=== PATIENT | female | born 1990 | race Hispanic/Latino ===

== ENCOUNTER 2020-11-18 11:52 | Inpatient (IN) | payer SELFPAY ==
[~2020-11-18 11:52] MED LIST: Iopamidol-370 76% 500 ML 1 ML ONE
[2020-11-18] MEDS ORDERED: Piperacillin/Tazobactam 4.5 GM VIAL ONE (12:35)
[2020-11-18] MEDS ORDERED: Acetaminophen 500 MG TAB ONE (12:35)
[2020-11-18 13:10] LABS: #Basophils 0.1 thou/uL (0.0-0.2); #Lymphocytes 0.2 thou/uL (1.20-3.40); #Monocytes 0.5 thou/uL (0.11-0.59); #Neutrophils 4.3 thou/uL (1.40-6.50); %Eosinophils 0.2 % (0.0-10.0); %Lymphocytes 3.2 % (21.0-51.0); %Monocytes 9.9 % (0.0-10.0); %Neutrophils 85.6 % (42.0-75.0); Hemoglobin 11.9 g/dL (12.0-16.0); Mean Corpuscular HGB CONC 33.7 g/dL (32.0-36.0); Mean Corpuscular Hemoglobin 30.7 pg (27.0-31.0); Mean Platelet Volume 7.6 fL (7.4-10.4); Platelet Count 204 thou/uL (130-400); RBC Distribution Width 12.4 % (11.5-14.5); Red Blood Cell (RBC) Count 3.88 mill/uL (4.20-5.40); White Blood Cell (WBC) Count 5.1 thou/uL (4.8-10.8)
[2020-11-18] MEDS ORDERED: VANCOMYCIN 2 GRAM/400 ML BAG 2 GM in Premix Bag 1 BAG IVPB SCH (13:15)
[2020-11-18 13:19] LABS: BHCG - Serum Negative (NEGATIVE); Pregs Control Bar Appear? YES (CONTROL BAR)
[2020-11-18 13:20] LABS: Pregs Control Background? CLEAR/WHITE (CLR/WHITE)
--- NOTE | 2020-11-18 13:20 | RAD ---
PORTABLE CHEST: HISTORY: Cough. FINDINGS: Heart size and mediastinum are within normal limits. The lungs appear clear of any infiltrative proc ess. No significant bony findings. IMPRESSION: No active intrathoracic disease. POS: ELAINE
[2020-11-18 13:36] LABS: ALT (SGPT) 20 U/L (8-55); AST (SGOT) 16 U/L (5-34); Albumin 3.7 g/dL (3.5-5.0); Alkaline Phosphatase 75 U/L (40-110); Anion Gap 15 mmol/L (10-20); BUN (Urea Nitrogen) 10 mg/dL (7.0-18.7); Bilirubin, Total 0.6 mg/dL (0.2-1.2); Calc. Creatinine Clearance 0 mL/min (70-130); Calcium 8.7 mg/dL (7.8-10.44); Carbon Dioxide 20 mmol/L (22-29); Chloride 102 mmol/L (98-107); Globulin 3.4 g/dL (2.4-3.5); Glucose 138 mg/dL (70-105); Lipase 9 U/L (8-78); Potassium 3.5 mmol/L (3.5-5.1); Protein, Total 7.1 g/dL (6.0-8.3); Sodium 133 mmol/L (136-145)
[2020-11-18 13:46] LABS: Base Excess-Venous -2.8 mmol/L (-2.0 to 3.0); Bicarbonate (HCO3v) 19.4 mmol/L (22.0-28.0); Calcium, Ionized 0.96 mmol/L (1.15-1.33); Chloride 103 mmol/L (98-107); Hemoglobin - Calc 12.1 g/dL (12.0-16.0); Potassium 3.7 mmol/L (3.5-5.1); Sodium 135 mmol/L (138-145); T. Carbon Dioxide 20.2 mmol/L (22.0-28.0); vO2 Saturation-calc 98.2 % (60.0-85.0)
[2020-11-18 14:19] LABS: Bilirubin Negative (Negative); Blood, Urine Negative (Negative); Clarity Clear (Clear); Glucose, Urine (Dipstick) Normal (Negative); Ketone, Urine Negative (Negative); Leukocyte Negative Leu/uL (Negative); Nitrite Negative (Negative); Protein, Urine (Dipstick) 10 mg/dL (Neg-Trace); Specific Gravity, Urine 1.025 (1.002-1.036); Urobilinogen Normal mg/dL (Less than 2); pH, Urine 6.5 (5.0-9.0)
--- NOTE | 2020-11-18 15:10 | CT ---
CT ABDOMEN AND PELVIS WITH IV CONTRAST: 11/18/20 INDICATIONS: Abdominal pain with nausea and vomiting. Comparison made to CT abdomen and pelvis from 04/21/15. FINDINGS: Lung bases clear. Liver, spleen and pancreas unremarkable. Post cholecystectomy changes. Stomach and duodenum unremarka ble. The kidneys unremarkable. No hydronephrosis. Small bowel loops normal caliber. Appendix appears normal. The colon is unremarkable. Aorta normal caliber. No adenopathy. No free fluid. Images through pelvis show unremarkable uterus and adnexa. Osseous structures unremarkable. IMPRESSION: No acute abnormality identified. POS: AGW
[2020-11-18] MEDS ORDERED: Ondansetron PF 4 MG/2 ML Vial ONE ×2 (15:17→19:55)
[2020-11-18] MEDS ORDERED: diphenhydrAMINE 50 MG/ML VIAL ONE (15:27)
[2020-11-18] MEDS ORDERED: Metoclopramide HCl 10 MG/2 ML VIAL ONE (15:27)
[2020-11-18 15:59] LABS: SARS-CoV-2 NAA Rapid Test Not Detected (NotDetected)
--- NOTE | 2020-11-18 17:53 | CT ---
CT HEAD WITHOUT CONTRAST: 11/18/20 INDICATIONS: Headache and fever. FINDINGS: The ventricles have normal size and position. No evidence of intracranial mass or hemorrhage. No jenna a or infarct identified. The paranasal sinuses appear clear. IMPRESSION: No acute findings. POS: AGW
[2020-11-18] MEDS ORDERED: hydrALAZINE 20 MG/ML VIAL SLOW IVP PRN (18:29)
[2020-11-18] MEDS ORDERED: cloNIDine 0.1 MG TAB PO PRN ×2 (18:29→20:07)
[2020-11-18] MEDS ORDERED: Ondansetron ODT 4 MG TAB PO PRN (18:29)
[2020-11-18] MEDS ORDERED: cefTRIAXone\\ROCEPHIN 2 GM in Sodium Chloride 0.9% 100 ML IVPB SCH (18:30)
--- NOTE | 2020-11-18 18:38 | HP ---
PRIMARY CARE PHYSICIAN: At [facility]. CHIEF COMPLAINT: Abdominal pain, nausea, vomiting, and headache. HISTORY OF PRESENT ILLNESS: Ms. Gamino is a very pleasant 30-year-old female, who was in her usual state of health until about a week ago when she started having some stomach upset. Then last night around between 10:00 p.m. and 11:00 p.m., she started having a really bad headache and she described it as in the front of her head radiating towards the back. She notices that the lights do bother her eyes. She says that she cannot notice whether or not she had any visual changes because her vision is blurry all the time. She also says that certain noises were bothering her, but she was also having cramping in her stomach, and says that her legs were hurting and felt weak. She felt like her body was pink or red in color. She says that her brother said her chest looked red and she also had some fever. She was also having vomiting and diarrhea as well, but no hematemesis or hematochezia. Her brother wanted her to come to the ER last night, but she refused due to the weather, but since her headache continued, she came to the ER today. She denies any foreign travel. She denies any unusual foods. There have been no sick contacts in the house. The only new medication that she has started was Flexeril due to some back pain from a back injury, but otherwise no other sick contacts or unusual or new medications or foods. She was evaluated in the ER and had a CT scan of the brain, which was negative. Urinalysis was also clear. She had a CT scan of the abdomen and pelvis, which was also negative for any acute abnormality and she is being admitted to undergo a LP under fluoroscopy and for further evaluation. REVIEW OF SYSTEMS: All systems were reviewed and are negative except for that mentioned in the History of Present Illness. PAST MEDICAL HISTORY: Significant for hypertension and some type of corneal disease. PAST SURGICAL HISTORY: She had ovarian cancer and surgery for this, , left oophorectomy, and cholecystectomy. ALLERGIES: NO KNOWN DRUG ALLERGIES. SOCIAL HISTORY: She is single, but has had a boyfriend for the last several years. She is a nonsmoker and nondrinker and has one child. FAMILY HISTORY: Her mother had some type of heart disease. Father had hypertension and gout. Mother also had ovarian cancer and liver disease. CURRENT MEDICATIONS: Include . PHYSICAL EXAMINATION: GENERAL: She is awake and alert. She appears to be in some distress. She has all of the sheets covering her head when I come to see here. She is morbidly obese. VITAL SIGNS: Her blood pressure was 119/67, heart rate 87, respiratory rate of 24, temperature was 99.1, and O2 saturation was 98% on room air. HEENT: Her face does appear a bit flushed. Her pupils are equal and reactive. Extraocular muscles are intact. Her sclerae are anicteric and there is no conjunctival injection. Her throat, there is no erythema, no exudate. Uvula was midline. Her tympanic membranes on the right, there was some cloudiness behind the drum and some redness of the left drum. NECK: I was not able to appreciate any adenopathy. LUNGS: They were clear to auscultation. There was no wheezing, no rales, no rhonchi. CARDIOVASCULAR: She had a normal S1 and S2. Heart sounds were distant. I was not able to appreciate any murmurs, clicks, or rubs. ABDOMEN: Obese, and she had some generalized tenderness. There is no rebound, no guarding, however, unable to appreciate any organomegaly. EXTREMITIES: There is no clubbing or cyanosis. No edema. No calf tenderness. No obvious joint effusions. Her dorsalis pedis pulses are palpable. SKIN AND INTEGUMENT: There are no skin changes. No rash. LABORATORY DATA: The white blood cell count is 5.1, hemoglobin 11.9, hematocrit is 35.3, and platelet count was 204. Sodium 133, potassium 3.5, chloride is 102, CO2 is 20, BUN of 10, creatinine 0.77, and glucose is 138. Her liver function tests were normal. Urinalysis was normal. Rapid COVID screen and flu screen were negative. ASSESSMENT AND PLAN: This is a pleasant 30-year-old female, who presents to the emergency room with a constellation of symptoms including headache, nausea, vomiting, diarrhea, and abdominal pain. The etiology of which is unclear. The most likely representation to encompass all of her symptoms would be some type of viral syndrome. It is noted that she had a recent tooth extraction and then therefore endocarditis even though this is highly unlikely as a possibility and meningitis is also a possibility either viral or bacterial, but more than likely viral and potentially connective tissue disorder such as lupus or a sarcoid. She will be admitted to Medicine. The plan will be to get a lumbar puncture under fluoroscopic guidance tomorrow. She will be placed empirically on antibiotics for meningitis including Rocephin, vancomycin, and consider acyclovir. We will follow up on her cultures, get an SILVANA and at least a double-stranded DNA, and an KEN level. Consider an echocardiogram, fluid resuscitation and further recommendations to follow. Job ID: [id number]
[2020-11-18 19:37] VITALS: BMI 68.5
[2020-11-18] MEDS ORDERED: Ketorolac Tromethamine 30 MG/ML VIAL ONE (19:55)
[2020-11-18] MEDS ORDERED: Morphine 4 MG/ML VIAL ONE (19:55)
[2020-11-18] MEDS: Morphine 2 MG/ML VIAL SLOW IVP PRN (20:02)
[2020-11-18] MEDS: Ketorolac Tromethamine 30 MG/ML VIAL IVP PRN (20:03)
[2020-11-18] MEDS: cefTRIAXone\\ROCEPHIN 2 GM in Sodium Chloride 0.9% 100 ML IVPB SCH (21:30)
[2020-11-18] MEDS: Famotidine 20 MG TAB PO SCH (21:30)
[2020-11-18] MEDS ORDERED: Famotidine 20 MG TAB ONE (21:39)
[2020-11-18] MEDS ORDERED: cefTRIAXone\\ROCEPHIN 2 GM VIAL ONE (21:39)
[2020-11-19] MEDS ORDERED: VANCOMYCIN 2 GRAM/400 ML BAG 2 GM in Premix Bag 1 BAG IVPB SCH (02:00)
[2020-11-19] MEDS ORDERED: Ondansetron ODT 4 MG TAB ONE (02:14)
[2020-11-19] MEDS: Ondansetron PF 4 MG/2 ML Vial IVP PRN ×3 (02:15→22:40)
[2020-11-19 05:25] LABS: Anion Gap 13 mmol/L (10-20); BUN (Urea Nitrogen) 11 mg/dL (7.0-18.7); Calc. Creatinine Clearance 283 mL/min (70-130); Carbon Dioxide 21 mmol/L (22-29); Chloride 104 mmol/L (98-107); Glucose 122 mg/dL (70-105); Potassium 3.5 mmol/L (3.5-5.1); Sodium 134 mmol/L (136-145)
[2020-11-19 05:40] LABS: Band 11 % (5-11); Eosinophils 1 % (0-10); Hemoglobin 11.5 g/dL (12.0-16.0); Hypochromia SLIGHT = 6-15 cells (100X) (0-5/hpf); Lymphocytes 15 % (21-51); MDiff Complete? YES; Mean Corpuscular Hemoglobin 30.6 pg (27.0-31.0); Mean Corpuscular Volume 92.7 fL (78.0-98.0); Mean Platelet Volume 7.4 fL (7.4-10.4); Monocytes 10 % (0-10); Neutrophil 61 % (42-75); Platelet Count 160 thou/uL (130-400); Platelet Morphology Comment Appears Adequate; RBC Distribution Width 12.5 % (11.5-14.5); Reactive Lymphocytes 2 % (0-10); Red Blood Cell (RBC) Count 3.75 mill/uL (4.20-5.40); White Blood Cell (WBC) Count 3.7 thou/uL (4.8-10.8)
[2020-11-19] MEDS ORDERED: Ondansetron PF 4 MG/2 ML Vial ONE (06:20)
[2020-11-19] MEDS ORDERED: Morphine 2 MG/ML VIAL ONE ×2 (07:11→12:52)
[2020-11-19] MEDS ORDERED: Ketorolac Tromethamine 30 MG/ML VIAL ONE ×2 (07:12→12:52)
[2020-11-19] MEDS: Morphine 2 MG/ML VIAL SLOW IVP PRN ×3 (07:26→22:39)
[2020-11-19] MEDS: Ketorolac Tromethamine 30 MG/ML VIAL IVP PRN ×2 (07:28→13:00)
[2020-11-19] MEDS ORDERED: Acetaminophen 325 MG TAB ONE (07:33)
[2020-11-19] MEDS: Acetaminophen 325 MG TAB PO PRN ×2 (07:35→14:47)
[2020-11-19] MEDS ORDERED: cefTRIAXone\\ROCEPHIN 2 GM VIAL ONE (08:30)
[2020-11-19] MEDS ORDERED: Enoxaparin Sodium 40 MG/0.4 ML SYRINGE ONE (08:30)
[2020-11-19] MEDS ORDERED: Famotidine 20 MG TAB ONE (08:30)
[2020-11-19] MEDS ORDERED: Enoxaparin Sodium 40 MG/0.4 ML SYRINGE SC SCH (09:00)
--- NOTE | 2020-11-19 10:53 | RAD ---
Exam: Lumbar puncture with fluoroscopic guidance HISTORY: Severe headache. Evaluate for pseudotumor cerebri versus meningitis. FINDINGS: Initial two-view clinical psychologist licensed lumbar spine radiograph demonstrate 5 lumbar type vertebra. Lumbar s pine vertebral body height is maintained. No fracture. Disc space heights are preserved. 2.9 mm of retrolisthesis of L5 upon S1. No associated spondylolysis. Successful lumbar puncture. Opening pressure: 20.2 cm of water Closing pressure: 20.2 cm of water Total of 8 mL of clear CSF was collected. TECHNIQUE: Consent obtained to perform a lumbar puncture with fluoroscopic guidance. The L2-L3 level was deemed appropriate. Skin was prepped and draped in sterile fashion. 1% lidocaine, buffered with sodium bicarbonate was used for local anesthesia. Under fluoroscopic guidance, 20-gauge spinal needle was advanced into the CSF space. Opening pressure was determined. A total of 8 mL of clear CSF was obtained. Closing pressure was determined. Patient tolerated the procedure well. No immediate or post procedural complications. Exposure: 0.9 minutes, 435.2 microgray/M2. IMPRESSION: 1. Successful lumbar puncture. 8 mL of clear CSF was obtained. 2. Opening pressure was 20.2 cm of water. Closing pressure was 20.2 cm of water. Transcribed Date/Time: 11/19/2020 11:01 AM
[2020-11-19 11:03] LABS: CSF, Glucose 64 mg/dl (40-70); CSF, Protein 28 mg/dL (15-40)
[2020-11-19] MEDS: cefTRIAXone\\ROCEPHIN 2 GM in Sodium Chloride 0.9% 100 ML IVPB SCH (11:06)
[2020-11-19] MEDS: Famotidine 20 MG TAB PO SCH ×2 (11:07→20:58)
[2020-11-19 11:27] LABS: CSF Source CSF; Clarity Clear (Clear); Tube # 4
[2020-11-19 14:30] LABS: ANA Symphony (Qualitative) Negative (Negative); ANA Symphony (Quantitative) 0.6 Ratio (< 0.7 Negative); dsDNA IgG Antibody 1.3 IU/mL (<10 Negative)
--- NOTE | 2020-11-19 17:28 | PDOC.HOSPP ---
- Subjective Encounter Date: 11/19/20 Subjective: Patient seen by me after her lumbar puncture. She tolerated the procedure well. She is still complaining of headache. - Objective Vital Signs & Weight: Vital Signs (12 hours) Temp Pulse Resp BP Pulse Ox 11/19/20 15:14 98 11/19/20 15:10 98 11/19/20 14:47 98.9 F 11/19/20 14:13 98.9 F 84 19 120/75 98 Weight Weight 363 lb 1.621 oz Result Diagrams: 11/19/20 04:48 11/19/20 04:48 Hospitalist ROS - Medication Medications: Active Medications Generic Name Dose Route Start Last Admin Trade Name Freq PRN Reason Stop Dose Admin Acetaminophen 650 mg 11/18/20 18:29 11/19/20 14:47 Acetaminophen 325 Mg Tab PO 650 mg Q4H PRN Administration Headache/Fever/Mild Pain (1-3) Enoxaparin Sodium 40 mg 11/19/20 09:00 11/19/20 11:06 Enoxaparin Sodium 40 Mg/0.4 Ml Syringe SC 40 mg 0900 TRESSA Administration Famotidine 20 mg 11/18/20 21:00 11/19/20 11:07 Famotidine 20 Mg Tab PO 20 mg BID TRESSA Administration Ceftriaxone Sodium 2 gm/ 100 mls @ 200 mls/hr 11/18/20 21:00 11/19/20 11:06 Sodium Chloride IVPB 100 mls Q12HR TRESSA Administration Acyclovir Sodium 500 mg/ 110 mls @ 110 mls/hr 11/18/20 22:00 11/19/20 14:36 Sodium Chloride IVPB 110 mls Q8HR TRESSA Administration Vancomycin HCl 2 gm/ Sodium 500 mls @ 250 mls/hr 11/19/20 14:00 11/19/20 14:36 Chloride IVPB 500 mls 0200,1400 TRESSA Administration Ketorolac Tromethamine 15 mg 11/18/20 18:29 11/19/20 13:00 Ketorolac Tromethamine 30 Mg/Ml Vial IVP 11/23/20 18:30 15 mg Q6H PRN Administration Pain Morphine Sulfate 2 mg 11/18/20 18:29 11/19/20 12:59 Morphine 2 Mg/Ml Vial SLOW IVP 2 mg Q4H PRN Administration Moderate to Severe Pain (6-10) Ondansetron HCl 4 mg 11/18/20 18:29 11/19/20 06:27 Ondansetron Pf 4 Mg/2 Ml Vial IVP 4 mg Q6H PRN Administration Nausea/Vomiting Ondansetron HCl 4 mg 11/18/20 18:29 11/18/20 20:04 Ondansetron Odt 4 Mg Tab PO 4 mg Q6H PRN Administration Nausea/Vomiting Sodium Chloride 10 ml 11/19/20 09:00 11/19/20 11:07 Flush - Normal Saline 10 Ml Syringe IVF 10 ml Q12HR TRESSA Administration Sodium Chloride 10 ml 11/19/20 05:15 11/19/20 06:27 Flush - Normal Saline 10 Ml Syringe IVF 10 ml PRN PRN Administration Saline Flush Hospitalist Exam Vitals: Vital Signs (12 hours) Temp Pulse Resp BP Pulse Ox 11/19/20 15:14 98 11/19/20 15:10 98 11/19/20 14:47 98.9 F 11/19/20 14:13 98.9 F 84 19 120/75 98 Weight Weight 363 lb 1.621 oz General - other findings: In mild distress, morbidly obese Eye: PERRL, anicteric sclera ENT: normocephalic atraumatic Neck: supple Heart: RRR, no murmur, no gallops, no rubs Respiratory: CTAB, no wheezes, no rales, no ronchi Gastrointestinal: soft, non-tender, non-distended Extremities: no clubbing, no edema Neurological: cranial nerve grossly intact Psychiatric: normal affect, normal behavior Hosp A/P (1) Morbid obesity with BMI of 60.0-69.9, adult Code(s): E66.01 - MORBID (SEVERE) OBESITY DUE TO EXCESS CALORIES; Z68.44 - BODY MASS INDEX [BMI] 60.0-69.9, ADULT Status: Acute (2) Intractable headache Code(s): R51.9 - HEADACHE, UNSPECIFIED Status: Acute (3) Nausea and vomiting Code(s): R11.2 - NAUSEA WITH VOMITING, UNSPECIFIED Status: Acute - Plan Assessment Patient is a 30-year-old female with morbid obesity who was admitted yesterday with intractable headache complicated by nausea vomiting. Patient states that she has been having visual changes as well for some time. CT of the head was not remarkable. She had a lumbar puncture with normal opening and closing pressures. CSF analysis ruled out meningeal encephalitis. Resolved right now. Intractable headache Nausea and vomiting Morbid obesity Plan: I will give a trial of headache cocktail with ketorolac, Reglan. Add Benadryl to prevent tonic reactions Continue acyclovir, ceftriaxone and vancomycin Continue supportive care If symptoms persist tomorrow, please consult neurology
[2020-11-19] MEDS: diphenhydrAMINE 50 MG/ML VIAL IVP SCH (17:47)
[2020-11-19] MEDS: Metoclopramide HCl 10 MG/2 ML VIAL IVP SCH (17:48)
[2020-11-19] MEDS: Ketorolac Tromethamine 30 MG/ML VIAL IVP SCH (17:48)
[2020-11-19] MEDS ORDERED: Magnesium 2 GM/50 ML 2 GM in Premix Bag 1 BAG IVPB SCH (18:00)
[2020-11-20] MEDS: Acetaminophen 325 MG TAB PO PRN ×3 (00:28→23:42)
[2020-11-20 01:17] LABS: Vancomycin, Trough 9.4 ug/mL
[2020-11-20] MEDS: diphenhydrAMINE 50 MG/ML VIAL IVP SCH ×3 (01:56→17:15)
[2020-11-20] MEDS: Ketorolac Tromethamine 30 MG/ML VIAL IVP SCH ×5 (01:57→23:42)
[2020-11-20] MEDS: Metoclopramide HCl 10 MG/2 ML VIAL IVP SCH ×2 (01:57→10:21)
[2020-11-20] MEDS: Famotidine 20 MG TAB PO SCH ×2 (10:21→21:03)
[2020-11-20] MEDS ORDERED: FLU VACC QS2020-21(6MOS UP)/PF 60 MCG/0.5 ML SYRINGE IM ONE (15:30)
--- NOTE | 2020-11-20 15:54 | PDOC.HOSPP ---
- Subjective Encounter Date: 11/20/20 Encounter Time: 12:40 Subjective: no nausea or vomiting, is tolerating oral diet still has headache, no exposure to covid per patient (lives with her daughter, not working) no neck stiffness, rash or weakness, no back pain in any spine area has no pets at home - Objective Vital Signs & Weight: Vital Signs (12 hours) Temp Pulse Resp BP BP Pulse Ox 11/20/20 15:40 98.7 F 84 16 132/79 99 11/20/20 11:21 98.5 F 83 17 107/72 95 11/20/20 07:29 98.2 F 87 16 132/82 96 11/20/20 04:00 97.7 F 75 20 121/77 93 L Weight Weight 363 lb 1.621 oz Result Diagrams: 11/19/20 04:48 11/19/20 04:48 Hospitalist ROS - Medication Medications: Active Medications Generic Name Dose Route Start Last Admin Trade Name Freq PRN Reason Stop Dose Admin Acetaminophen 650 mg 11/18/20 18:29 11/20/20 15:27 Acetaminophen 325 Mg Tab PO 650 mg Q4H PRN Administration Headache/Fever/Mild Pain (1-3) Diphenhydramine HCl 25 mg 11/19/20 18:00 11/20/20 10:21 Diphenhydramine 50 Mg/Ml Vial IVP 25 mg Q8H TRESSA Administration Famotidine 20 mg 11/18/20 21:00 11/20/20 10:21 Famotidine 20 Mg Tab PO 20 mg BID TRESSA Administration Ketorolac Tromethamine 15 mg 11/18/20 18:29 11/19/20 13:00 Ketorolac Tromethamine 30 Mg/Ml Vial IVP 11/23/20 18:30 15 mg Q6H PRN Administration Pain Ketorolac Tromethamine 30 mg 11/19/20 18:00 11/20/20 11:37 Ketorolac Tromethamine 30 Mg/Ml Vial IVP 11/24/20 18:01 30 mg Q6HR TRESSA Administration Metoclopramide HCl 10 mg 11/19/20 18:00 11/20/20 10:21 Metoclopramide Hcl 10 Mg/2 Ml Vial IVP 10 mg Q8H TRESSA Administration Morphine Sulfate 2 mg 11/18/20 18:29 11/19/20 22:39 Morphine 2 Mg/Ml Vial SLOW IVP 2 mg Q4H PRN Administration Moderate to Severe Pain (6-10) Ondansetron HCl 4 mg 11/18/20 18:29 11/19/20 22:40 Ondansetron Pf 4 Mg/2 Ml Vial IVP 4 mg Q6H PRN Administration Nausea/Vomiting Ondansetron HCl 4 mg 11/18/20 18:29 11/18/20 20:04 Ondansetron Odt 4 Mg Tab PO 4 mg Q6H PRN Administration Nausea/Vomiting Sodium Chloride 10 ml 11/19/20 09:00 11/20/20 10:21 Flush - Normal Saline 10 Ml Syringe IVF 10 ml Q12HR TRESSA Administration Sodium Chloride 10 ml 11/19/20 05:15 11/19/20 06:27 Flush - Normal Saline 10 Ml Syringe IVF 10 ml PRN PRN Administration Saline Flush Hospitalist Exam Vitals: Vital Signs (12 hours) Temp Pulse Resp BP BP Pulse Ox 11/20/20 15:40 98.7 F 84 16 132/79 99 11/20/20 11:21 98.5 F 83 17 107/72 95 11/20/20 07:29 98.2 F 87 16 132/82 96 11/20/20 04:00 97.7 F 75 20 121/77 93 L Weight Weight 363 lb 1.621 oz General Appearance: awake alert Eye: PERRL, anicteric sclera ENT: no oropharyngeal lesions, moist mucosa Neck: supple, no JVD Heart: RRR, no murmur Respiratory: no wheezes, no rales Gastrointestinal: soft, non-tender, non-distended, normal bowel sounds Extremities: no cyanosis, no edema Neurological: cranial nerve grossly intact, no focal deficits Psychiatric: normal affect, A&O x 3 Hosp A/P (1) Fever Code(s): R50.9 - FEVER, UNSPECIFIED Status: Acute Qualifiers: Fever type: unspecified Qualified Code(s): R50.9 - Fever, unspecified (2) Intractable headache Code(s): R51.9 - HEADACHE, UNSPECIFIED Status: Acute Qualifiers: Headache type: unspecified (3) Morbid obesity with BMI of 60.0-69.9, adult Code(s): E66.01 - MORBID (SEVERE) OBESITY DUE TO EXCESS CALORIES; Z68.44 - BODY MASS INDEX [BMI] 60.0-69.9, ADULT Status: Chronic (4) Nausea and vomiting Code(s): R11.2 - NAUSEA WITH VOMITING, UNSPECIFIED Status: Resolved Qualifiers: Vomiting type: unspecified Vomiting Intractability: intractable Qualified Code(s): R11.2 - Nausea with vomiting, unspecified - Plan had fever of 102 this am, unclear etiology repeat covid pcr blood and urine cs ID consult is on toradol prn for pain dc reglan to ambulate in room as tolerated
[2020-11-20 17:30] LABS: SARS-CoV-2 PCR by NAA Not Detected (NotDetected)
--- NOTE | 2020-11-20 20:14 | CON ---
DATE OF CONSULTATION: 11/20/2020 REASON FOR CONSULTATION: Headaches, abdominal pain, nausea, and fever. HISTORY OF PRESENT ILLNESS: A 30-year-old who has morbid obesity. She was here in the hospital in 2014 in March with abdominal pain. She had been diagnosed with right ovarian cyst. She was given analgesia and discharged home with improvement. In March 2015, the patient came again with abdominal pain x1 month, and she had a pelvic ultrasound which showed an ovarian cyst again, and basically, she was given analgesia and released home. Next visit was in March 2016, one year later, because of an injury to the left foot, and then this admission, which occurred on the , but she was symptomatic two days before she presented to the emergency room. Basically, she was having what they described as generalized aches and pains. The patient states that the main issue was epigastric abdominal pain, nausea, vomiting, and headaches. She felt chilly but did not check her temperature, had some liquid stool, but no bleeding. No respiratory symptoms other than a little bit of coughing spells. No genitourinary symptoms. No joint symptoms or skin disorder. Initial findings, BP 140/90, pulse 140, respirations 25, temperature 100.7, O2 saturation 96. Temperature measurement was 103.4, and she remained saturating well on room air throughout the emergency room. On exam, the patient did not appear in distress. There was diffuse tenderness in the abdominal area on palpation. Other findings included a white cell count of 5.1, hemoglobin 11.9, MCV 91, platelets 204 with 85% neutrophils. Somehow, blood gas was done, showed pH of 7.48, pCO2 26, PO2 97. Chemistry on admission, sodium 133, creatinine 0.77, glucose 138, and liver profile normal. Albumin 3.7. Urinalysis was normal. She had a CSF done, which is completely normal. SILVANA was negative. SARS-CoV-2 was not detected. The patient has been given ondansetron, Reglan, hydralazine, clonidine, diphenhydramine. Over the past few days, she has remained afebrile briefly for a few minutes actually on the , but now she has defervesced, looks like BP 130/70, heart rate 84, respirations 16, O2 saturation 99. She had a little bit of drop in O2 sats to 93, but that is the only measurement, I am not sure that this is accurate. All the other measurements are above 98% on room air. In terms imaging, she has had an abdomen and pelvis CT, which did not show any acute abnormality. The previous CT was done about six years ago and it showed mild splenomegaly, cholecystectomy, and the right ovarian cyst. She had a chest x-ray this time, which did not show any active intrathoracic disease. Currently, Ms. Gamino is lying on her left lateral decubitus. She is awake, having headaches still intermittently, the only time they go away is when she gets an analgesic medication, still nauseated, did not eat much today because of that. Still having some diarrhea. 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 Oral cavity otherwise without symptoms. I did not witness any significant respiratory symptoms during the exam. PAST MEDICAL HISTORY: Morbid obesity. She has had ovarian cyst removal as well as cholecystectomy at the age of 16. Other than that, she also has a history of hypertension. SOCIAL HISTORY: Used to drink moderately, but she quit. She actually lives with a boyfriend in [place], has a child. 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 ALLERGIES: NONE. MEDICATIONS: Have been listed above. She also takes control medicines at home. CURRENT EXAMINATION: VITAL SIGNS: Other than the brief temp elevation, which occurred earlier today for about 30 minutes, she has remained afebrile. Other vital signs are normal essentially. SKIN: Showed tattoo in the back area, back of the neck. Peripheral IV access, voiding without any difficulty. No lymphadenopathy. HEENT: Ocular movements conjugate. Pupils are reactive. Oral cavity with a few missing teeth, but no major signs of gingivitis or periodontitis. Oral mucosa otherwise normal. NECK: Supple. No jugular vein distention. LUNGS: Symmetric. Clear breath sounds. HEART: S1, S2. Regular rate. No murmurs. No S3. ABDOMEN: Not distended, but there is moderate to marked tenderness in the epigastric area. The patient has no tenderness in the lower quadrants. No evidence of ascites or organomegaly. No suprapubic tenderness. EXTREMITIES: No joint inflammatory activity. No edema. Pulses 1+ in dorsalis pedis. Plantar responses are flexor. No clonus. NEUROLOGIC: Awake, alert, oriented, follows commands. Cognitive function appears to be in intact. LABORATORY DATA: White cell count now is down to 3.7, hemoglobin 11.5, platelets 160 with 15% lymphocytes. Repeat chemistry with sodium 134, creatinine 0.75. test negative. Microbiology, we have pending blood cultures. ASSESSMENT: Morbid obesity, prior cholecystectomy many years ago, now with acute onset of epigastric abdominal pain with headaches, fever, diarrhea, nausea, vomiting. DISCUSSION: The patient has marked tenderness in the epigastric area, and liver functions are normal, so this does not seem to be a biliary tract issue but either gastritis or colitis in view of her diarrhea or some small bowel inflammatory process. I do not see any samples for stool evaluation. We will go ahead and order those. I think COVID-19 is less likely but not completely ruled out just yet. Bacteremia has been evaluated with blood cultures. No evidence of respiratory tract inflammatory process. The OFFSET LABEL REWINDER is completely clear per the CSF and the imaging study done. I think the headaches are secondary rather than primary, so either we are dealing with gastroenteritis or gastritis or small-bowel disorder here or a systemic viral infection. Job ID: [id number] MTDD
[2020-11-21] MEDS: diphenhydrAMINE 50 MG/ML VIAL IVP SCH ×2 (02:50→07:16)
[2020-11-21] MEDS: Acetaminophen 325 MG TAB PO PRN (05:34)
[2020-11-21] MEDS: Ketorolac Tromethamine 30 MG/ML VIAL IVP SCH ×2 (05:34→12:08)
[2020-11-21 07:34] LABS: White Blood Cell (WBC) Count 2.5 thou/uL (4.8-10.8)
[2020-11-21 07:46] LABS: ALT (SGPT) 29 U/L (8-55); AST (SGOT) 31 U/L (5-34); Albumin 3.3 g/dL (3.5-5.0); Alkaline Phosphatase 57 U/L (40-110); Anion Gap 11 mmol/L (10-20); BUN (Urea Nitrogen) 13 mg/dL (7.0-18.7); Bilirubin, Total 0.2 mg/dL (0.2-1.2); Calc. Creatinine Clearance 307 mL/min (70-130); Calcium 7.9 mg/dL (7.8-10.44); Carbon Dioxide 25 mmol/L (22-29); Chloride 107 mmol/L (98-107); Glucose 111 mg/dL (70-105); Potassium 3.3 mmol/L (3.5-5.1); Protein, Total 6.3 g/dL (6.0-8.3); Sodium 140 mmol/L (136-145)
[2020-11-21] MEDS: Famotidine 20 MG TAB PO SCH (07:55)
[2020-11-21 08:20] LABS: Band 2 % (5-11); Eosinophils 15 % (0-10); Hemoglobin 10.8 g/dL (12.0-16.0); Large Platelets SLIGHT; Lymphocytes 32 % (21-51); MDiff Complete? YES; Mean Corpuscular HGB CONC 34.2 g/dL (32.0-36.0); Mean Corpuscular Hemoglobin 31.4 pg (27.0-31.0); Mean Corpuscular Volume 91.7 fL (78.0-98.0); Mean Platelet Volume 8.1 fL (7.4-10.4); Monocytes 20 % (0-10); Neutrophil 31 % (42-75); Platelet Count 137 thou/uL (130-400); Platelet Morphology Comment Appears Adequate; RBC Distribution Width 12.3 % (11.5-14.5); Red Blood Cell (RBC) Count 3.44 mill/uL (4.20-5.40)
[2020-11-21 12:14] VITALS: BP 112/81; TEMP 98.5
--- NOTE | 2020-11-21 18:28 | DIS ---
DATE OF ADMISSION: 11/18/2020 DATE OF DISCHARGE: 11/21/2020 DISCHARGE DISPOSITION: Home. PRIMARY DISCHARGE DIAGNOSIS: Fever with unknown origin, likely viral gastroenteritis. SECONDARY DISCHARGE DIAGNOSES: Intractable headache, nausea, and vomiting, all of which resolved; morbid obesity with BMI of 68. PROCEDURES DONE DURING HOSPITALIZATION: Chest x-ray done showed no acute intrathoracic disease. CT of abdomen and pelvis with IV contrast done showed no acute abnormality. CT brain showed no acute findings. Had lumbar puncture done by Interventional Radiology on 11/19/2019. Blood cultures x2, no growth. CSF culture from lumbar puncture showed no growth. Urine culture, no growth. Stool for Campylobacter, C diff, and Shiga toxins were negative. H and H 10 and 31, platelet count 137, white count of 2.5. BUN 13, creatinine 0.6. Liver enzymes were within normal limits. test was negative. Lipase 9. CSF tube #4 was colorless and clear, 0 RBCs were seen, 64 mg/dL of glucose, and 28 mg/dL of total protein. SILVANA screen was negative. COVID-19 PCR not detected. Influenza A and B PCRs were negative. DISCHARGE MEDICATION: None. INPATIENT CONSULT: Dr. Valenzuela for Infectious Disease. DISCHARGE PLAN: The patient to follow up with her primary care physician in 1 week. BRIEF COURSE DURING HOSPITALIZATION: The patient initially got admitted on the 18 of November with complaints of severe headache with abdominal pain, nausea, and vomiting. The patient later started to have some diarrhea. In view of this history, the patient was admitted to medical floor. She has had multiple imaging studies done as mentioned above, which were all negative. Lumbar puncture done did not reveal any sign of infection in the brain or meninges. The patient's headache has completely resolved on the day of discharge. Intractable nausea, vomiting, and diarrhea have resolved as well. Likely, the patient has had viral gastroenteritis which has resolved at present. She was evaluated by Dr. Valenzuela as well for Infectious Disease. This morning, she is ambulating and eating well. She is wanting to go home and will be shortly discharged. Please note, I have seen and examined the patient on the day of discharge. Job ID: [id number]
== END 2020-11-21 13:51 | disposition home or self-care (01) | DRG 392 ==
LOC: ERS 11:52 → ERHOLD 17:08 → T4-B 11-19 13:08
PROVIDERS: ADMIT Internal Medicine; ATTEND Internal Medicine
PROC: 009U3ZX Drainage of Spinal Canal, Percutaneous Approach, Diagnostic (ICD-10-PCS; principal; 2020-11-19)
PROC: B01B1ZZ Fluoroscopy of Spinal Cord using Low Osmolar Contrast (ICD-10-PCS; 2020-11-19)
DX: A08.4 Viral intestinal infection, unspecified (principal); Z68.44 Body mass index [BMI] 60.0-69.9, adult; E66.01 Morbid (severe) obesity due to excess calories; I10 Essential (primary) hypertension; R51.9 Headache, unspecified; Z20.822 Contact with and (suspected) exposure to COVID-19; Z85.43 Personal history of malignant neoplasm of ovary; Z90.49 Acquired absence of other specified parts of digestive tract; Z90.721 Acquired absence of ovaries, unilateral
CPT/HCPCS: 0240U; 36415; 62270; 70450; 71045; 74177; 80048; 80053; 80202; 81003; 82164; 82330; 82803; 82945; 83605; 83630; 83690; 84157; 84484; 84703; 85025; 86038; 86225; 87040; 87045; 87046; 87070; 87086; 87205; 87324; 87427; 87449; 87635; 89051; 93005; 93306; 96365; 96366; 96367; 96375; J0133; J0696; J1200; J1650; J1885; J2270; J2405; J2543; J2765; J3370; J3475; J3490; J7030; Q0162; Q9967; U0003; U0005